=== PATIENT | male | born 1975 | race African-American/Black ===

== ENCOUNTER 2019-11-09 10:06 | Emergency (ER) | payer OTHER ==
[~2019-11-09] VITALS: Ht 190.5 cm; Wt 102.1 kg
[2019-11-09] MEDS ORDERED: PRINIVIL20 M1 PO (10:10)
[2019-11-09] MEDS ORDERED: CARVEDILOL12.5 MG PO (10:22)
[2019-11-09] MEDS ORDERED: ATIVAN0.5 M1 PO (10:54)
[2019-11-09 11:28] VITALS: BP 142/89
--- NOTE | 2019-11-09 15:05 | EKG ---
[address] [place] [address] [place] [address] ELECTROCARDIOGRAM REPORT Name: SYDNEE SALAS Room #: SHALOM Jacob#: [id number] Admission: 11/09/19 Attend Phys: Discharge: 11/09/19 Date of : 73 Report #: [id number] THIS REPORT FOR: //name// [facility] ED Test Date: 2019-11-09 Test Time: 10:20:03 Pat Name: SYDNEE SALAS Department: Room: Gender: M Tire Sorter: PAULINO : 1975 Requested By: Wendie Campbell Order Number: [id number] MD: Stephen Enriquez Measurements Intervals [place] Rate: 87 P: -33 AK: 168 QRS: -20 QRSD: 101 T: 25 QT: 350 QTc: 421 Interpretive Statements Sinus rhythm Probable left atrial enlargement Borderline left axis deviation ST elev, probable normal early repol pattern No previous ECG available for comparison Electronically Signed On 11-09-2019 15:05:09 [employer] SALES [employer] by Stephen Enriquez [email or web address] <ELECTRONICALLY SIGNED> By: Stephen Enriquez MD 11/09/19 1505 1020 1020 Stephen Enriquez MD /[email or web address]
== END 2019-11-09 11:29 | disposition home or self-care (01) ==
LOC: ER 10:06
DX: I10 Essential (primary) hypertension (principal); R07.89 Other chest pain; F17.210 Nicotine dependence, cigarettes, uncomplicated